=== PATIENT | female | born 1995 | race Caucasian/White ===

== ENCOUNTER 2019-08-24 08:03 | Emergency (ER) | payer MEDICAID, SELFPAY ==
--- NOTE | 2019-08-24 08:18 | US_ITS ---
WS: [id number] OB ultrasound, 08/24/2019 Clinical Data: bleeding/cramping Comparison: None. Findings: The uterus measures 4.03 x 6.68 x 8.99 cm. There is fluid in the endometrium but no intrauterine preg lisa is seen. The ovaries could not be imaged. There is minimal fluid in the cervix. The ovaries wer e not imaged. Minimal fluid in the cul-de-sac is seen. US/US OB <= 14 weeks fetus [id number] Impression: 1. Enlarged uterus with no intrauterine . 2. Fluid in the endometrium. 3. Minimal fluid in the cervix and cul-de-sac.
[2019-08-24 08:48] VITALS: BMI 29.7
[2019-08-24 08:49] LABS: Basophils # 0.1 10^3/uL (0.0-0.1); Basophils % 0.5 %; Eosinophils # 0.1 10^3/uL (0.0-0.8); Eosinophils % 1.1 %; Hematocrit 41.1 % (37.0-47.0); Hemoglobin 13.7 g/dL (11.5-15.3); Lymphocytes # 2.7 10^3/uL (0.8-4.8); Lymphocytes % 25.9 %; Mean Corpuscular HGB Conc 33.3 g/dL (30.0-36.0); Mean Corpuscular Hemoglobin 28.5 pg (28.0-34.0); Mean Corpuscular Volume 85.6 fL (81-99); Mean Platelet Volume 9.9 fL (7.4-10.4); Monocytes # 0.7 10^3/uL (0.2-0.9); Monocytes % 6.1 %; Neutrophils % 66.1 %; Nucleated Red Blood Cells % 0 %; Platelet Count 315 10^3/cmm (130-400); Red Cell Distribution Width 13.9 % (12.1-15.1); White Blood Count 10.6 10^3/uL (4.0-10.0)
[2019-08-24 08:51] VITALS: BP 131/97; PULSE 107; RESP 20; TEMP 36.7; O2SAT 97
--- NOTE | 2019-08-24 08:55 | ED_ITS ---
Entered by Rasheed Muhammad, acting as scribe for HPI - General: Chief complaint: OB/Uterine Contractions Stated complaint: 11 WEEKS PREG AND BLEEDING AND CRAMPING Time Seen by Provider: 08/24/19 09:02 Source: patient Mode of arrival: ambulatory Limitations: no limitations History of Present Illness: HPI Narrative: Patient is a 23-year-old [id number] female here at approximately 11 weeks for complaints of vaginal bleeding and cramping. Patient states yesterday she began noticing some light spotting and since then has progressed with larger amounts of bleeding and cramping. Patient denies vaginal discharge, concern for STDs, vaginal odor, fevers greater than 100.4. Patient states her OB is Dr. Smith. Complaint: vaginal bleeding Onset (ago): day(s) Pain Consistency: constant Location: pelvis Quality: Cramping Date of Last Menstrual Period: 06/06/19 Patient : Yes Number of Weeks : 11 Associated symptoms: Reports abdominal pain and vaginal bleeding; Deny dysuria, headache(s), malaise, nausea, syncope or vomiting Review of Systems Const: Denies: fever, chills, body aches, change in appetite, change in weight, fatigue or malaise Card: Denies: chest pain, palpitations, irregular heart rhythm, edema, lightheadedness, syncope or pre-syncope Resp: Denies: shortness of breath, productive cough or chest congestion GI: Reports: abdominal pain; Denies: nausea, vomiting or diarrhea : Reports: vaginal bleeding; Denies: flank pain, difficulty urinating, painful urination, urinary frequency, urinary urgency or urinary hesitancy Musc: Denies: neck pain or back pain Skin/Breast: Denies: rash Neuro: Denies: headache PFS ED PFSH: Social History Smoking and tobacco status: current every day smoker Female Reproductive History: Date of last menstrual period: 06/06/19 Physical Exam Const: COMMON NORMALS: no apparent distress, average body habitus, oriented x3, no limitations, healthy appearing, alert and well nourished Resp: COMMON NORMALS: normal respiratory effort and clear to auscultation bilaterally AUSCULTATION: clear to auscultation bilaterally Cardio: COMMON NORMALS: regular rate and regular rhythm RATE: regular rate RHYTHM: regular rhythm GI: COMMON NORMALS: normal to inspection, nondistended, normoactive bowel sounds, soft to palpation, no hepatosplenomegaly and no masses PALPATION: Yes soft and Yes no hepatosplenomegaly OTHER: TTP lower abdomen/pelvis : EXTERNAL FEMALE EXAM: Yes normal appearance of the urethra SPECULUM EXAM - VAGINA: Yes vaginal bleeding and Yes tissue present in vagina SPECULUM EXAM - CERVIX: Yes cervical os open and Yes tissue present in the cervical os OB/EXTERNAL & SPECULUM: tissue present in vagina, cervical os open and vaginal bleeding Neuro: COMMON NORMALS: oriented x3 SENSORIUM/ORIENTATION: Yes alert Procedures Perimortem Number of Weeks : 11 Course Vital Signs: Vital signs: Vital Signs Temperature 98.1 F 08/24/19 08:51 Pulse Rate 104 H 08/24/19 10:56 Respiratory Rate 16 08/24/19 10:56 Blood Pressure 119/83 08/24/19 10:56 Pulse Oximetry 98 08/24/19 10:56 MDM - OB/Uterine Contractions MDM Narrative: Medical decision making narrative: Patient's ultrasound does not show an intrauterine . On exam her cervical os is open and there were products/tissue within her vaginal canal. Patient will need close follow- up through her OB provider Dr. Smith. Spoke to Dr. Delacruz regarding her care. He did not feel we needed to place patient on any medications at this time. Lab Data: Labs: Lab Results 08/24/19 08/24/19 08/24/19 Range/Units 08:34 08:34 08:34 WBC 10.6 H (4.0-10.0) 10^3/ uL RBC 4.80 (4.1-5.3) 10^6/u L Hgb 13.7 (11.5-15.3) g/dL Hct 41.1 (37.0-47.0) % MCV 85.6 (81-99) fL MCH 28.5 (28.0-34.0) pg MCHC 33.3 (30.0-36.0) g/dL RDW 13.9 (12.1-15.1) % Plt Count 315 (130-400) 10^3/c mm MPV 9.9 (7.4-10.4) fL Neut % (Auto) 66.1 % Lymph % (Auto) 25.9 % Evans % (Auto) 6.1 % Eos % (Auto) 1.1 % Baso % (Auto) 0.5 % Neut # (Auto) 7.0 (1.8-7.7) 10^3/u L Lymph # (Auto) 2.7 (0.8-4.8) 10^3/u L Evans # (Auto) 0.7 (0.2-0.9) 10^3/u L Eos # (Auto) 0.1 (0.0-0.8) 10^3/u L Baso # (Auto) 0.1 (0.0-0.1) 10^3/u L Nucleated RBC % (a uto) 0 % Nucleated RBCs # 0.0 /100WBC Sodium 139 (136-145) mmol/L Potassium 3.9 (3.5-5.1) mmol/L Chloride 103 (98-107) mmol/L Carbon Dioxide 23 (22-29) mmol/L Anion Gap 16.9 (5-19) BUN 6 (6-20) mg/dL Creatinine 0.6 (0.5-0.9) mg/dL GFR Calculation 123.9 (90-130) mL/min Glucose 116 H (65-115) mg/dL Calcium 10.3 (8.5-10.5) mg/dL Total Bilirubin 0.4 (0.15-1.2) mg/dL AST 14 (0-32) U/L ALT 14 (0-33) U/L Alkaline Phosphata se 60 (35-105) IU/L Total Protein 7.9 (6.6-8.7) g/dL Albumin 4.4 (3.5-5.2) g/dL Globulin 3.5 (1.3-4.6) g/dL Ser , Valarie i-Qnt 1317.00 mIU/mL Blood Type B Positive Imaging Data^: US OB: Radiologist's impression: [address] [address] Ultrasound Report Signed Patient: Morris Angel Unit #: [id number] : 1995 Age/Sex: 23 / F ADM Date: 0 Loc: ER Room/Bed: Attending Dr: Ordering Provider/Ordering MD: Maday Hilario Date of Service: 08/24/19 Procedure(s): US OB limited [id number] Accession Number(s): [id number] Report Number: [id number] WS: [id number] OB ultrasound, 08/24/2019 Clinical Data: bleeding/cramping Comparison: None. Findings: The uterus measures 4.03 x 6.68 x 8.99 cm. There is fluid in the endometrium but no intrauterine is seen. The ovaries could not be imaged. There is minimal fluid in the cervix. The ovaries were not imaged. Minimal fluid in the cul-de-sac is seen. US/US OB <= 14 weeks fetus [id number] Impression: 1. Enlarged uterus with no intrauterine . 2. Fluid in the endometrium. 3. Minimal fluid in the cervix and cul-de-sac. Dictated By: Ting Thomas MD Signed By: Ting Thomas MD Signed Date/Time: 08/25/19 1343 DD/ 1024 Discharge Plan Discharge Patient Disposition: Home, Self-Care Clinical Impression: Incomplete Condition: Stable Prescriptions: No Action Tylenol PM Extra Strength 25-500 mg Tablet 1 tab PO BEDTIME RF: 0 28 mg iron- 800 mcg Tablet 1 tab PO DAILY RF: 0 Discharge Orders: Discharge Order (Routine); Ordered 08/24/19 Ordered By: Maday Hilario Patient Instructions: Spontaneous , Spontaneous Miscarriage (ED) Activity Restrictions/Additional Instructions: As discussed you need to contact Dr. Smith's office as soon as possible to schedule a follow-up visit. Unfortunately your ultrasound today did not show an intrauterine . Bleeding may continue over the next few days but should lighten. If bleeding continues, becomes heavier, or does not subside or if you begin feeling lightheaded, dizzy, passing out you need to return to the emergency department immediately. Discharge Date/Time: 08/24/19 10:58 Coding Level of Care Code ED Assistant Manager Of Operations for Ch[facility] Fwd The documentation recorded by the Jb andersen Kialy, accurately reflects the service I personally performed and the decisions made by Yanelis fuentes Emily, PA Aug 24, 2019 08:03
[2019-08-24 09:03] VITALS: RESP 16
[2019-08-24 09:19] LABS: Alanine Aminotransferase 14 U/L (0-33); Albumin Level 4.4 g/dL (3.5-5.2); Alkaline Phosphatase 60 IU/L (35-105); Anion Gap 16.9 (5-19); Aspartate Amino Transferase 14 U/L (0-32); Blood Urea Nitrogen 6 mg/dL (6-20); Calcium 10.3 mg/dL (8.5-10.5); Carbon Dioxide 23 mmol/L (22-29); Chloride 103 mmol/L (98-107); Globulin 3.5 g/dL (1.3-4.6); Glomerular Filtration Rate 123.9 mL/min (90-130); Glucose 116 mg/dL (65-115); Potassium 3.9 mmol/L (3.5-5.1); Sodium 139 mmol/L (136-145); Total Bilirubin 0.4 mg/dL (0.15-1.2); Total Protein 7.9 g/dL (6.6-8.7)
[2019-08-24 10:56] VITALS: BP 119/83; PULSE 104; RESP 16; O2SAT 98
== END 2019-08-24 10:58 | disposition home or self-care (01) ==
PROVIDERS: Emergency Provider Physician Assistant
DX: O03.4 Incomplete spontaneous abortion without complication (principal); F17.200 Nicotine dependence, unspecified, uncomplicated
CPT/HCPCS: 36415; 76801; 76815; 80053; 84702; 85025; 86900; 87210; 87491; 87591; 87661; 99283; A9270; E0352